=== PATIENT | female | born 1985 | race Caucasian/White ===

== ENCOUNTER 2020-07-01 12:40 | Outpatient (CLI) | payer BC, SELFPAY ==
--- NOTE | 2020-07-03 13:24 | WPDPFTINT ---
PFT Interpretation PFT Interpretation: DOS: 07/03/2020 REQUESTING: Adama Simpson MD REASON FOR TESTING: shortness of breath PULMONARY FUNCTION TESTS Spirometry: FEV1 80%, 2.42 L normal. FVC 88% normal. FEV1% 72%, normal. [id number] is 59%. No bronchodilator was given. Lung volumes: TLC 112% normal. RV 123% elevated consistent with mild air trapping. Airway resistance normal. Diffusion: DLCO 99% normal Flow volume loop: Rounded expiratory limb. IMPRESSION: Decreased small airway flows without bronchodilator administration and mild air trapping. Clinical correlation is recommended. Kathrine Carter MD
== END 2020-07-01 12:41 | disposition home or self-care (01) ==
PROVIDERS: PCP Internal Medicine; Visit Provider Internal Medicine
DX: R06.02 Shortness of breath (principal)
CPT/HCPCS: 94375; 94726; 94729